=== PATIENT | female | born 1995 | race American Indian/Alaskan Native ===

== ENCOUNTER 2016-04-28 09:12 | Emergency (ER) | payer SELFPAY ==
[2016-04-28 09:34] VITALS: BP 119/86
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
[2016-04-28] MEDS ORDERED: MOTRIN PO ONE (10:55)
== END 2016-04-28 11:10 | disposition home or self-care (01) ==
LOC: ED 09:12
DX: S93.431A Sprain of tibiofibular ligament of right ankle, initial encounter (principal); S63.501A Unspecified sprain of right wrist, initial encounter; F17.200 Nicotine dependence, unspecified, uncomplicated; V49.49XA Driver injured in collision with other motor vehicles in traffic accident, initial encounter; Y93.89 Activity, other specified; Y99.8 Other external cause status; Y92.89 Other specified places as the place of occurrence of the external cause
CPT/HCPCS: 99283